=== PATIENT | female | born 1960 | race Caucasian/White ===

== ENCOUNTER 2017-11-08 21:26 | Observation (INO) | payer MEDICARE, MEDICAID ==
--- NOTE | 2017-11-08 21:31 | EDM.PDOC ---
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 Annotation/Comment:: Lipid panel and glycosylated in the a.m. with current obesity Qualifiers: Hyperlipidemia type: unspecified Qualified Code(s): E78.5 - Hyperlipidemia , unspecified (4) Hypertension SNOMED Code(s): 09882170 Code(s): I10 - ESSENTIAL (PRIMARY) HYPERTENSION Status: Chronic Priority : Medium Current Visit: No Annotation/Comment:: Recent medication noncompliance with aggressive therapy required in the emergency room. Medication compliance strongly encouraged Qualifiers: Hypertension type: essential hypertension Qualified Code(s): I10 - Essential (primary) hypertension (5) Illicit drug use, continuous SNOMED Code(s): 520756786 Code(s): F19.90 - OTHER PSYCHOACTIVE SUBSTANCE USE, UNSPECIFIED, UNCOMPLICATED Status: Chronic Priority: Medium Current Visit: No Annotation/Comment:: Note persistent daily marijuana use for her anxiety, etc. Tobacco cessation and illicit drug cessation information provided at discharge. (6) Mixed anxiety depressive disorder SNOMED Code(s): 635452217 Code(s): F41.8 - OTHER SPECIFIED ANXIETY DISORDERS Status: Chronic Priority: Medium Current Visit: No Annotation/Comment:: Mild to moderate control based on today's exam. Continue to observe closely by her regular providers. (7) Osteoarthritis SNOMED Code(s): 838364546 Code(s): M19.90 - UNSPECIFIED OSTEOARTHRITIS, UNSPECIFIED SITE Status: Chronic Priority: Medium Current Visit: No Annotation/Comment:: Stable by history Qualifiers: Osteoarthritis location: multiple joints Osteoarthritis type: primary Qualified Code(s): M15.0 - Primary generalized (osteo)arthritis (8) Peptic reflux disease SNOMED Code(s): 228331902 Code(s): K21.9 - GASTRO-ESOPHAGEAL REFLUX DISEASE WITHOUT ESOPHAGITIS Status: Chronic Priority: Medium Current Visit: No Annotation/Comment:: Stable by history with high-dose IV Pepcid given in the emergency room. Consider EGD depending on her clinical course. Patient does need a colonoscopy DORE[facility] once her cardiac status has stabilized secondary to family history of colonic polyps. (9) Tobacco abuse counseling SNOMED Code(s): 666066469, 682331916, 368831916 Code(s): Z71.6 - TOBACCO ABUSE COUNSELING Status: Chronic Priority: Medium Current Visit: No Annotation/Comment:: Tobacco cessation information to be provided at discharge. Nicotine patch during this hospitalization (10) Hypothyroidism (acquired) SNOMED Code(s): 987073184 Code(s): E03.9 - HYPOTHYROIDISM, UNSPECIFIED Status: Acute Priority: High Current Visit: Yes Annotation/Comment:: Significantly elevated TSH as above. Note medication noncompliance. Close follow-up by regular provider with L thyroxine to be initiated this evening. The patient is uncertain about her current medical therapy. - Problem List Review Problem List Initiated/Reviewed/Updated: Yes - My Orders Last 24 Hours: My Active Orders 11/08/17 21:31 Cardiac Monitoring [RC] . DIRECTED EKG Documentation Completion [RC] ASDIRECTED Oxygen Therapy, ED [RC] CONTINUOUS Peripheral IV Care [RC] . DIRECTED Pulse Oximetry [RC] CONTINUOUS Up With Assistance [RC] PFP Vital Signs [RC] PFP Chest 1V Frontal [CR] Stat Sodium Chloride 0.9% [Saline Flush] 10 ml FLUSH ASDIRECTED PRN Obtain Past Medical Record [OM.PC] Urgent Peripheral IV Insertion Adult [OM.PC] Stat Resuscitation Status Stat 11/08/17 Breakfast Nothing per Oral Now Diet [DIET] - Assessment/Plan Admission H&P: Please use this note as an admission H&P Last 24 Hours: My Active Orders 11/08/17 21:31 Cardiac Monitoring [RC] . DIRECTED EKG Documentation Completion [RC] ASDIRECTED Oxygen Therapy, ED [RC] CONTINUOUS Peripheral IV Care [RC] . DIRECTED Pulse Oximetry [RC] CONTINUOUS Up With Assistance [RC] PFP Vital Signs [RC] PFP Chest 1V Frontal [CR] Stat Sodium Chloride 0.9% [Saline Flush] 10 ml FLUSH ASDIRECTED PRN Obtain Past Medical Record [OM.PC] Urgent Peripheral IV Insertion Adult [OM.PC] Stat Resuscitation Status Stat 11/08/17 Breakfast Nothing per Oral Now Diet [DIET] Assessment:: As above Plan: As above. Extensive precautions were given to the patient and her daughter, who are in agreement with the treatment plan. [facility] physician assumes care in the a.m. The patient's condition is stable enough for observation status and general supervision. Patient's daughter does agree to bring her medications in [facility] tomorrow morning for confirmation of her home medical therapy.
[2017-11-08] MEDS: Aspirin 81 MG Tab.Chew CHEW ONE (21:39)
[2017-11-08] MEDS: Ticagrelor 90 MG Tab PO ONE (21:39)
[2017-11-08] MEDS: Famotidine 20 MG/2 ML SDV IVPUSH ONE (21:46)
[2017-11-08] MEDS: Metoprolol Tartrate 5 MG/5 ML SDV IVPUSH ONE (21:46)
[2017-11-08] MEDS: Sodium Chloride 0.9% 10 ML Syringe FLUSH PRN (21:47)
[2017-11-08] MEDS: Enalaprilat 1.25 MG/ML SDV IVPUSH ONE (22:05)
[2017-11-08 22:22] LABS: CHLORIDE,CL 104 mmol/L (98-107); SODIUM,NA 141 mmol/L (136-145)
[2017-11-08] MEDS ORDERED: Sodium Chloride 0.9% 10 ML Syringe FLUSH PRN (23:42)
[2017-11-09] MEDS: Nicotine 21 MG/24 Hr Patch TRDERM SCH (00:25)
[2017-11-09] MEDS: Acetaminophen 325 MG Tab PO PRN (00:26)
[2017-11-09] MEDS: Metoprolol Succinate 25 MG Tab.ER PO SCH (00:27)
[2017-11-09] MEDS: Temazepam 15 MG Cap PO PRN (00:27)
[2017-11-09] MEDS: Lisinopril 10 MG Tab PO SCH (00:28)
[2017-11-09] MEDS: Sertraline 50 MG Tab PO SCH (08:13)
[2017-11-09] MEDS: Venlafaxine 75 MG Cap.ER PO SCH (08:13)
[2017-11-09] MEDS: amLODIPine 5 MG Tab PO SCH (08:13)
--- NOTE | 2017-11-09 14:56 | PCM.DCSUM1 ---
Discharge Summary - Hospital Course Brief History: Patient evaluated in ER for complaint of chest pain. Admitted for rule out IA/serial labs/cardiac monitoring. Diagnosis: Stroke: No - Discharge Data Discharge Date: 11/09/17 Discharge Disposition: Home, Self-Care 01 Condition: Good - Discharge Diagnosis/Problem(s) (1) Chest pain SNOMED Code(s): 98263103 ICD Code: R07.9 - CHEST PAIN, UNSPECIFIED Status: Acute Priority: High Current Visit: No Onset Date: 11/08/17 Problem Details: Chest pain protocol initiated in the emergency room immediately upon arrival to the patient to this facility. Chest pain completely resolved by time of admission with treatment as above. No chest pain noted since admission. Serial Troponins/CKMB negative. No EKG changes. Recommend at Cardiolite stress test on an outpatient basis after discharge. Note mild leukocytosis likely secondary to stress reaction. Qualifiers: Chest pain type: precordial pain Qualified Code(s): R07.2 - Precordial pain (2) Hypothyroidism (acquired) SNOMED Code(s): 518143630 ICD Code: E03.9 - HYPOTHYROIDISM, UNSPECIFIED Status: Chronic Priority: High Current Visit: Yes Problem Details: Significantly elevated TSH as above. Note medication noncompliance. Close follow-up by regular provider with L thyroxine to be initiated last night. (3) COPD (chronic obstructive pulmonary disease) SNOMED Code(s): 53533942 ICD Code: J44.9 - CHRONIC OBSTRUCTIVE PULMONARY DISEASE, UNSPECIFIED Status : Chronic Priority: Medium Current Visit: No Problem Details: No recent fever. Reports recent three day course of medication for cough/bronchitis. Cough has improved. No complaint of SOB at this time. Follow up with primary provider. Qualifiers: COPD type: emphysema Emphysema type: panlobular Qualified Code(s): J43.1 - Panlobular emphysema (4) Hyperlipidemia SNOMED Code(s): 17395271 ICD Code: E78.5 - HYPERLIPIDEMIA, UNSPECIFIED Status: Chronic Priority: Medium Current Visit: No Problem Details: Elevated total cholesterol, triglycerides, LDL, HDL. To follow up with primary provider for continued care Qualifiers: Hyperlipidemia type: unspecified (5) Hypertension SNOMED Code(s): 08202266 ICD Code: I10 - ESSENTIAL (PRIMARY) HYPERTENSION Status: Chronic Priority : Medium Current Visit: No Problem Details: Recent medication noncompliance with aggressive therapy required in the emergency room. Medication compliance strongly encouraged. Patient says she frequently forgets to take her medication due to the chaos of family members moving in with her into her mobile home. Qualifiers: Hypertension type: essential hypertension Qualified Code(s): I10 - Essential (primary) hypertension (6) Illicit drug use, continuous SNOMED Code(s): 512192178 ICD Code: F19.90 - OTHER PSYCHOACTIVE SUBSTANCE USE, UNSPECIFIED, UNCOMPLICATED Status: Chronic Priority: Medium Current Visit: No Problem Details: Note persistent daily marijuana use for her anxiety, etc. Tobacco cessation and illicit drug cessation information provided at discharge. (7) Mixed anxiety depressive disorder SNOMED Code(s): 548379714 ICD Code: F41.8 - OTHER SPECIFIED ANXIETY DISORDERS Status: Chronic Priority: Medium Current Visit: No Problem Details: Mild to moderate control based on today's exam. Continue to observe closely by her regular providers. (8) Osteoarthritis SNOMED Code(s): 338911419 ICD Code: M19.90 - UNSPECIFIED OSTEOARTHRITIS, UNSPECIFIED SITE Status: Chronic Priority: Medium Current Visit: No Problem Details: Stable by history Qualifiers: Osteoarthritis location: multiple joints Osteoarthritis type: primary Qualified Code(s): M15.0 - Primary generalized (osteo)arthritis (9) Peptic reflux disease SNOMED Code(s): 475181545 ICD Code: K21.9 - GASTRO-ESOPHAGEAL REFLUX DISEASE WITHOUT ESOPHAGITIS Status: Chronic Priority: Medium Current Visit: No Problem Details: Stable by history with high-dose IV Pepcid given in the emergency room. Patient does need a colonoscopy DOREEN once her cardiac status has stabilized secondary to family history of colonic polyps. Dietary modifications that may be helpful in symptom control discussed. To follow up with primary provider. (10) Tobacco abuse counseling SNOMED Code(s): 947912121, 625684618, 698068536 ICD Code: Z71.6 - TOBACCO ABUSE COUNSELING Status: Chronic Priority: Medium Current Visit: No Problem Details: Tobacco cessation information to be provided at discharge. Nicotine patch during this hospitalization - Patient Summary/Data Complications: none Hospital Course: Patient improved in ER and became pain free. IV Pepcid given as was Brillinta and Metoprolol. BP improved with time. Serial labs performed and were negative for changes indicative of cardiac etiology. No new symptoms/complaints observed. - Patient Instructions Diet: Heart Healthy Diet Activity: As Tolerated Driving: May Drive Today Showering/Bathing: May Shower Notify Provider of: Increased Pain - Discharge Plan *PRESCRIPTION DRUG MONITORING PROGRAM REVIEWED*: No *COPY OF PRESCRIPTION DRUG MONITORING REPORT IN PATIENT GISELLA: No Prescriptions/Med Rec: Metoprolol Succinate [Toprol XL] 50 mg PO BEDTIME #30 tab.er Home Medications: Home Meds Ibuprofen [Motrin] 800 mg PO TIDMEALS 11/08/17 [History] Levothyroxine 175 mcg PO ACBRK 11/08/17 [History] Sertraline HCl [Zoloft] 100 mg PO DAILY 11/08/17 [History] Varenicline Tartrate [Chantix] 1 each PO BID PRN 11/08/17 [History] Venlafaxine [Effexor XR] 150 mg PO DAILY 11/08/17 [History] amLODIPine Besylate [Amlodipine Besylate] 5 mg PO DAILY 11/08/17 [History] Fexofenadine HCl [Allergy Relief] 180 mg PO DAILY PRN 11/09/17 [History] Metoprolol Succinate [Toprol XL] 50 mg PO BEDTIME #30 tab.er 11/09/17 [Rx] Venlafaxine HCl [Venlafaxine ER] 37.5 mg PO DAILY 11/09/17 [History] Patient Handouts: Metoprolol tablets, Hypothyroidism, Nonspecific Chest Pain, [id number], Hypertension Forms: ED Department Discharge Referrals: Loretta Stauffer NP [Primary Care Provider] - - Discharge Summary/Plan Comment DC Time >30 min.: No - General Info Date of Service: 11/09/17 Admission Dx/Problem (Free Text: Chest pain Subjective Update: Feels much improved. No return of chest pain since admission Functional Status: Reports: Pain Controlled, Tolerating Diet, Ambulating. Denies: New Symptoms - Review of Systems General: Reports: No Symptoms HEENT: Reports: No Symptoms Pulmonary: Reports: No Symptoms. Denies: Shortness of Breath Cardiovascular: Reports: No Symptoms. Denies: Chest Pain Gastrointestinal: Reports: No Symptoms. Denies: Abdominal Pain Genitourinary: Reports: No Symptoms Musculoskeletal: Reports: Other (diffuse aches which she blames on her chronic arthritis. 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 for which she has doctored with [facility] Neurological: Reports: No Symptoms Psychiatric: Reports: No Symptoms - Patient Data Vitals - Most Recent: Last Vital Signs Temp 36.9 C 11/09/17 12:00 Pulse 71 11/09/17 12:00 Resp 16 11/09/17 12:00 BP 117/70 11/09/17 12:00 Pulse Ox 97 11/09/17 12:00 Weight - Most Recent: 115.984 kg I&O - Last 24 hours: Intake & Output 11/08/17 11/09/17 11/09/17 22:59 06:59 14:59 Intake Total 120 1200 Output Total 300 350 Balance -180 850 Lab Results - Last 24 hrs: Laboratory Results - last 24 hr 11/08/17 11/08/17 11/08/17 Range/Units 21:50 21:50 21:50 WBC 12.0 H (4.0-10.2) K/uL RBC 4.17 (3.77-5.09) M/uL Hgb 12.5 (11.7-15.5) g/dL Hct 37.2 (34.0-46.0) % MCV 89.2 (84.0-98.0) fL MCH 30.0 (28.2-33.3) pg MCHC 33.6 (31.7-36.0) g/dL RDW 14.7 H (11.2-14.1) % Plt Count 360 H (150-350) K/uL Neut % (Auto) 58.4 (45.0-80.0) % Lymph % (Auto) 31.8 (10.0-50.0) % Ponce % (Auto) 6.8 (2.0-14.0) % Eos % (Auto) 2.8 (0.0-5.0) % Baso % (Auto) 0.2 (0.0-2.0) % Neut # (Auto) 7.01 H (1.40-7.00) K/uL Lymph # (Auto) 3.82 H (0.50-3.50) K/uL Ponce # (Auto) 0.82 (0.00-1.00) K/uL Eos # (Auto) 0.34 (0.00-0.50) K/uL Baso # (Auto) 0.03 (0.00-0.20) K/uL PT 10.0 (9.8-11.7) SEC INR 0.9 APTT 25.8 (22.1-29.8) SEC D-Dimer, Quantitative 110 (0-400) ng/mL Sodium (136-145) mmol/L Potassium (3.5-5.1) mmol/L Chloride (98-107) mmol/L Carbon Dioxide (21.0-32.0) mmol/L BUN (7-18) mg/dL Creatinine (0.51-1.17) mg/dL Est Cr Clr Drug Dosing mL/min Estimated GFR (MDRD) mL/min Glucose (74-106) mg/dL Hemoglobin A1c (4.3-5.7) % Lactic Acid (0.4-2.0) mmol/L Uric Acid (2.6-7.2) mg/dL Calcium (8.5-10.1) mg/dL Magnesium (1.8-2.4) mg/dL Total Bilirubin (0.2-1.0) mg/dL AST (15-37) U/L ALT (12-78) U/L Alkaline Phosphatase (46-116) IU/L Creatine Kinase (26-308) U/L Creatine Kinase Index (0.0-2.5) % CK-MB (CK-2) (0.00-3.60) ng/mL Troponin I (0.000-0.056) ng/mL NT-Pro-B Natriuret Pep (0-125) pg/mL Total Protein (6.4-8.2) g/dL Albumin (3.4-5.0) g/dL Triglycerides (30-150) mg/dL Cholesterol (100-200) mg/dL LDL Cholesterol, Calc (0-100) mg/dL HDL Cholesterol (40-60) mg/dL TSH, Ultra Sensitive (0.358-3.740) mIU/mL 11/08/17 11/08/17 11/09/17 Range/Units 21:50 21:50 07:05 WBC 10.1 (4.0-10.2) K/uL RBC 4.23 (3.77-5.09) M/uL Hgb 12.5 (11.7-15.5) g/dL Hct 37.9 (34.0-46.0) % MCV 89.6 (84.0-98.0) fL MCH 29.6 (28.2-33.3) pg MCHC 33.0 (31.7-36.0) g/dL RDW 14.8 H (11.2-14.1) % Plt Count 326 (150-350) K/uL Neut % (Auto) 62.0 (45.0-80.0) % Lymph % (Auto) 27.0 (10.0-50.0) % Ponce % (Auto) 7.1 (2.0-14.0) % Eos % (Auto) 3.6 (0.0-5.0) % Baso % (Auto) 0.3 (0.0-2.0) % Neut # (Auto) 6.24 (1.40-7.00) K/uL Lymph # (Auto) 2.72 (0.50-3.50) K/uL Ponce # (Auto) 0.71 (0.00-1.00) K/uL Eos # (Auto) 0.36 (0.00-0.50) K/uL Baso # (Auto) 0.03 (0.00-0.20) K/uL PT (9.8-11.7) SEC INR APTT (22.1-29.8) SEC D-Dimer, Quantitative (0-400) ng/mL Sodium 141 (136-145) mmol/L Potassium 3.8 (3.5-5.1) mmol/L Chloride 104 (98-107) mmol/L Carbon Dioxide 27.3 (21.0-32.0) mmol/L BUN 14 (7-18) mg/dL Creatinine 1.05 (0.51-1.17) mg/dL Est Cr Clr Drug Dosing 60.35 mL/min Estimated GFR (MDRD) 54 mL/min Glucose 102 (74-106) mg/dL Hemoglobin A1c (4.3-5.7) % Lactic Acid 0.8 (0.4-2.0) mmol/L Uric Acid 4.4 (2.6-7.2) mg/dL Calcium 9.2 (8.5-10.1) mg/dL Magnesium 2.2 (1.8-2.4) mg/dL Total Bilirubin 0.1 L (0.2-1.0) mg/dL AST 19 (15-37) U/L ALT 31 (12-78) U/L Alkaline Phosphatase 100 (46-116) IU/L Creatine Kinase 286 (26-308) U/L Creatine Kinase Index 1.0 (0.0-2.5) % CK-MB (CK-2) 2.90 (0.00-3.60) ng/mL Troponin I 0.000 (0.000-0.056) ng/mL NT-Pro-B Natriuret Pep 43 (0-125) pg/mL Total Protein 7.3 (6.4-8.2) g/dL Albumin 3.6 (3.4-5.0) g/dL Triglycerides (30-150) mg/dL Cholesterol (100-200) mg/dL LDL Cholesterol, Calc (0-100) mg/dL HDL Cholesterol (40-60) mg/dL TSH, Ultra Sensitive > 100.000 H (0.358-3.740) mIU/mL 11/09/17 11/09/17 11/09/17 Range/Units 07:05 07:05 14:00 WBC (4.0-10.2) K/uL RBC (3.77-5.09) M/uL Hgb (11.7-15.5) g/dL Hct (34.0-46.0) % MCV (84.0-98.0) fL MCH (28.2-33.3) pg MCHC (31.7-36.0) g/dL RDW (11.2-14.1) % Plt Count (150-350) K/uL Neut % (Auto) (45.0-80.0) % Lymph % (Auto) (10.0-50.0) % Ponce % (Auto) (2.0-14.0) % Eos % (Auto) (0.0-5.0) % Baso % (Auto) (0.0-2.0) % Neut # (Auto) (1.40-7.00) K/uL Lymph # (Auto) (0.50-3.50) K/uL Ponce # (Auto) (0.00-1.00) K/uL Eos # (Auto) (0.00-0.50) K/uL Baso # (Auto) (0.00-0.20) K/uL PT (9.8-11.7) SEC INR APTT (22.1-29.8) SEC D-Dimer, Quantitative (0-400) ng/mL Sodium 142 (136-145) mmol/L Potassium 3.7 (3.5-5.1) mmol/L Chloride 106 (98-107) mmol/L Carbon Dioxide 27.6 (21.0-32.0) mmol/L BUN 12 (7-18) mg/dL Creatinine 1.01 (0.51-1.17) mg/dL Est Cr Clr Drug Dosing 62.99 mL/min Estimated GFR (MDRD) 57 mL/min Glucose 93 (74-106) mg/dL Hemoglobin A1c 5.9 H (4.3-5.7) % Lactic Acid (0.4-2.0) mmol/L Uric Acid (2.6-7.2) mg/dL Calcium 9.1 (8.5-10.1) mg/dL Magnesium (1.8-2.4) mg/dL Total Bilirubin 0.3 (0.2-1.0) mg/dL AST 15 (15-37) U/L ALT 20 (12-78) U/L Alkaline Phosphatase 86 (46-116) IU/L Creatine Kinase 223 (26-308) U/L Creatine Kinase Index 1.1 Not Reportable (0.0-2.5) % CK-MB (CK-2) 2.40 2.00 (0.00-3.60) ng/mL Troponin I 0.000 (0.000-0.056) ng/mL NT-Pro-B Natriuret Pep (0-125) pg/mL Total Protein 6.7 (6.4-8.2) g/dL Albumin 3.2 L (3.4-5.0) g/dL Triglycerides 157 H (30-150) mg/dL Cholesterol 367 H (100-200) mg/dL LDL Cholesterol, Calc 273 H (0-100) mg/dL HDL Cholesterol 63 H (40-60) mg/dL TSH, Ultra Sensitive (0.358-3.740) mIU/mL 11/09/17 Range/Units 14:00 WBC (4.0-10.2) K/uL RBC (3.77-5.09) M/uL Hgb (11.7-15.5) g/dL Hct (34.0-46.0) % MCV (84.0-98.0) fL MCH (28.2-33.3) pg MCHC (31.7-36.0) g/dL RDW (11.2-14.1) % Plt Count (150-350) K/uL Neut % (Auto) (45.0-80.0) % Lymph % (Auto) (10.0-50.0) % Ponce % (Auto) (2.0-14.0) % Eos % (Auto) (0.0-5.0) % Baso % (Auto) (0.0-2.0) % Neut # (Auto) (1.40-7.00) K/uL Lymph # (Auto) (0.50-3.50) K/uL Ponce # (Auto) (0.00-1.00) K/uL Eos # (Auto) (0.00-0.50) K/uL Baso # (Auto) (0.00-0.20) K/uL PT (9.8-11.7) SEC INR APTT (22.1-29.8) SEC D-Dimer, Quantitative (0-400) ng/mL Sodium (136-145) mmol/L Potassium (3.5-5.1) mmol/L Chloride (98-107) mmol/L Carbon Dioxide (21.0-32.0) mmol/L BUN (7-18) mg/dL Creatinine (0.51-1.17) mg/dL Est Cr Clr Drug Dosing mL/min Estimated GFR (MDRD) mL/min Glucose (74-106) mg/dL Hemoglobin A1c (4.3-5.7) % Lactic Acid (0.4-2.0) mmol/L Uric Acid (2.6-7.2) mg/dL Calcium (8.5-10.1) mg/dL Magnesium (1.8-2.4) mg/dL Total Bilirubin (0.2-1.0) mg/dL AST (15-37) U/L ALT (12-78) U/L Alkaline Phosphatase (46-116) IU/L Creatine Kinase (26-308) U/L Creatine Kinase Index (0.0-2.5) % CK-MB (CK-2) (0.00-3.60) ng/mL Troponin I 0.000 (0.000-0.056) ng/mL NT-Pro-B Natriuret Pep (0-125) pg/mL Total Protein (6.4-8.2) g/dL Albumin (3.4-5.0) g/dL Triglycerides (30-150) mg/dL Cholesterol (100-200) mg/dL LDL Cholesterol, Calc (0-100) mg/dL HDL Cholesterol (40-60) mg/dL TSH, Ultra Sensitive (0.358-3.740) mIU/mL Med Orders - Current: Current Medications Acetaminophen (Tylenol) 650 mg PO Q4H PRN PRN Reason: Pain Last Admin: 11/09/17 00:26 Dose: 650 mg Amlodipine Besylate (Norvasc) 5 mg PO DAILY [facility] Last Admin: 11/09/17 08:13 Dose: 5 mg Levothyroxine Sodium (Levothyroxine) 175 mcg PO BEDTIME LIZET Last Admin: 11/09/17 00:28 Dose: 175 mcg Lisinopril (Prinivil) 20 mg PO BEDTIME LIZET Last Admin: 11/09/17 00:28 Dose: 20 mg Metoprolol Succinate (Toprol Xl) 50 mg PO BEDTIME LIZET Last Admin: 11/09/17 00:27 Dose: 50 mg Nicotine (Habitrol) 21 mg TRDERM BEDTIME LIZET Last Admin: 11/09/17 00:25 Dose: 21 mg Sertraline HCl (Zoloft) 50 mg PO DAILY [facility] Last Admin: 11/09/17 08:13 Dose: 50 mg Sodium Chloride (Saline Flush) 10 ml FLUSH ASDIRECTED PRN PRN Reason: Keep Vein Open Last Admin: 11/08/17 21:47 Dose: 10 ml Sodium Chloride (Saline Flush) 10 ml FLUSH Q12HR PRN PRN Reason: Keep Vein Open Temazepam (Restoril) 15 mg PO BEDTIME PRN PRN Reason: Insomnia Last Admin: 11/09/17 00:27 Dose: 15 mg Venlafaxine HCl (Effexor Xr) 150 mg PO DAILY LIZET Last Admin: 11/09/17 08:13 Dose: 150 mg Discontinued Medications Aspirin (Aspirin) 324 mg CHEW ONETIME ONE Stop: 11/08/17 21:32 Last Admin: 11/08/17 21:39 Dose: 324 mg Enalaprilat (Vasotec Iv) 1.25 mg IVPUSH ONETIME ONE Stop: 11/08/17 22:01 Last Admin: 11/08/17 22:05 Dose: 1.25 mg Famotidine (Pepcid) 40 mg IVPUSH ONETIME ONE Stop: 11/08/17 21:32 Last Admin: 11/08/17 21:46 Dose: 40 mg Levothyroxine Sodium (Levothyroxine) 175 mcg PO ACBRK LIZET Lisinopril (Prinivil) 20 mg PO BEDTIME LIZET Metoprolol Succinate (Toprol Xl) 50 mg PO BEDTIME LIZET Metoprolol Tartrate (Lopressor) 2.5 mg IVPUSH ONETIME ONE Stop: 11/08/17 21:32 Last Admin: 11/08/17 21:46 Dose: 2.5 mg Ticagrelor (Brilinta) 180 mg PO ONETIME ONE Stop: 11/08/17 21:32 Last Admin: 11/08/17 21:39 Dose: 180 mg - Exam General: Reports: Alert, Oriented, Cooperative, No Acute Distress HEENT: Reports: Pupils Equal, Pupils Reactive Neck: Reports: Supple Lungs: Reports: Clear to Auscultation, Normal Respiratory Effort Cardiovascular: Reports: Regular Rate, Regular Rhythm GI/Abdominal Exam: Normal Bowel Sounds, Soft, Non-Tender, No Distention (Female) Exam: Deferred Rectal (Female) Exam: Deferred Back Exam: Denies: CVA Tenderness (L), CVA Tenderness (R), Muscle Spasm, Paraspinal Tenderness, Vertebral Tenderness Extremities: Normal Capillary Refill. No: Ramya's Sign, Leg Pain, Increased Warmth, Mottled, Pallor, Redness Skin: Reports: Warm, Dry Neurological: Reports: No New Focal Deficit Psy/Mental Status: Reports: Alert, Normal Affect, Normal Mood EKG INTERPRETATION EKG Date: 11/09/17 Time: 07:02 Rhythm: Other (Sinus Sumit) Rate (Beats/Min): 54 [place]: Normal P-Wave: Present QRS: Other (low voltage complex) ST-T: Normal QT: Normal Comparison: No Change
[2017-11-09] MEDS ORDERED: Lisinopril 10 MG Tab PO SCH (20:00)
[2017-11-09] MEDS ORDERED: Metoprolol Succinate 25 MG Tab.ER PO SCH (20:00)
== END 2017-11-09 15:45 | disposition home or self-care (01) ==
LOC: LL.ED 21:26 → UNDOADMOB 22:50 → LL.MS 22:50
PROVIDERS: ADMIT Family Medicine; ATTEND Emergency Medicine
DX: R07.2 Precordial pain (principal); E03.9 Hypothyroidism, unspecified; E78.5 Hyperlipidemia, unspecified; I10 Essential (primary) hypertension; J43.1 Panlobular emphysema; K21.9 Gastro-esophageal reflux disease without esophagitis; M15.0 Primary generalized (osteo)arthritis; F41.8 Other specified anxiety disorders; F17.210 Nicotine dependence, cigarettes, uncomplicated; Z79.899 Other long term (current) drug therapy; Z88.2 Allergy status to sulfonamides
CPT/HCPCS: 36415; 71045; 80053; 80061; 82550; 82553; 83036; 83605; 83735; 83880; 84443; 84484; 84550; 85025; 85379; 85610; 85730; 93005; 96374; 96375; 99285; A9270; G0378; J3490; J7050

== ENCOUNTER 2020-04-06 10:43 | Emergency (ER) | payer MEDICARE, MEDICAID ==
[2020-04-06] MEDS ORDERED: Sodium Chloride 0.9% 10 ML Syringe FLUSH PRN (11:02)
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
[2020-04-06] MEDS ORDERED: Lactated Ringers 1,000 ML IV ONE (11:03)
[2020-04-06] MEDS ORDERED: HYDROmorphone 0.5 MG/0.5 ML Syringe IVPUSH ONE (11:04)
[2020-04-06] MEDS ORDERED: Ondansetron 4 MG/2 ML SDV IVPUSH ONE (11:04)
[2020-04-06 11:29] LABS: CHLORIDE,CL 105 mmol/L (98-107); SODIUM,NA 141 mmol/L (136-145)
[2020-04-06] MEDS ORDERED: amLODIPine 5 MG Tab PO ONE (12:24)
[2020-04-06] MEDS ORDERED: LORazepam 2 MG/ML SDV IVPUSH ONE (12:25)
[2020-04-06] MEDS ORDERED: Diphtheria,Pertussis(Acell),Tetanus Vaccine 0.5 ML Syringe IM ONE (12:50)
[2020-04-06] MEDS: Lactated Ringers 1,000 ML IV SCH ×2 (12:55→12:56)
== END 2020-04-06 16:20 | disposition home or self-care (01) ==
LOC: LL.ED 10:43
DX: T22.112A Burn of first degree of left forearm, initial encounter (principal); T33.71XA Superficial frostbite of right knee and lower leg, initial encounter; T33.831A Superficial frostbite of right toe(s), initial encounter; T33.42XA Superficial frostbite of left arm, initial encounter; T33.72XA Superficial frostbite of left knee and lower leg, initial encounter; T33.832A Superficial frostbite of left toe(s), initial encounter; J43.1 Panlobular emphysema; I10 Essential (primary) hypertension; F41.8 Other specified anxiety disorders; R74.02 Elevation of levels of lactic acid dehydrogenase [LDH]; M89.49 Other hypertrophic osteoarthropathy, multiple sites; F19.90 Other psychoactive substance use, unspecified, uncomplicated; R00.0 Tachycardia, unspecified; L81.8 Other specified disorders of pigmentation; I25.10 Atherosclerotic heart disease of native coronary artery without angina pectoris; E03.9 Hypothyroidism, unspecified; E66.9 Obesity, unspecified; Z87.891 Personal history of nicotine dependence; Z71.6 Tobacco abuse counseling; Z23 Encounter for immunization; Z88.2 Allergy status to sulfonamides; Z79.899 Other long term (current) drug therapy; X08.8XXA Exposure to other specified smoke, fire and flames, initial encounter
CPT/HCPCS: 36415; 71045; 80053; 83605; 85025; 90471; 90715; 96374; 96375; 99284; 99284-25; A9270-GY; J1170; J2060; J2405; J7120